=== PATIENT | female | born 1980 | race Caucasian/White ===

== ENCOUNTER 2022-04-07 12:09 | Outpatient (CLI) | payer OTHER, SELFPAY ==
[2022-04-07 12:23] VITALS: BMI 35.1
--- NOTE | 2022-04-07 12:23 | ECG_ITS ---
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 Interpretive Statements NAME OF STUDY: TREADMILL STRESS TEST INDICATION: Chest Pain PROCEDURE: At the baseline, the patient's blood pressure was 124/94 with a heart rate of 95. The baseline electrocardiogram showed normal sinus rhythm with normal ST-Ts.. The patient exercised for 9 minutes on a standard Santiago protocol. Patient attained a maximum heart rate of 165 beats per minute(91% of the maximum predicted heart rate) with a blood pressure at the peak exercise of 118/86 mm Hg. The EKG at the peak exercise revealed no significant changes. Patient did not have any chest pain or any significant cardiac arrhythmias with the exercise During the recovery phase, there were no new changes. Blood pressure at the end of the recovery phase was 129/75 mm Hg with a heart rate of 87 per minute. CONCLUSION: 1. Normal EKG response to treadmill exercise 2. No exercise-induced chest pain or cardiac arrhythmia 3. Fair exercise tolerance, attained a maximum of 10.2 METs Electronically Signed On 04-09-2022 16:38:09 [employer] OFFICER CHIEF by Ca Dubon M.D. [email or web address]
[2022-04-07 13:44] VITALS: BP 133/84; PULSE 88
== END 2022-04-07 12:10 | disposition home or self-care (01) ==
PROVIDERS: PCP Family Medicine; Visit Provider Family Medicine
DX: R07.9 Chest pain, unspecified (principal)
CPT/HCPCS: 93017

== ENCOUNTER 2022-12-15 14:52 | Outpatient (CLI) | payer OTHER, SELFPAY ==
--- NOTE | 2022-12-15 15:07 | MM_ITS ---
WS: [id number] BILATERAL 3D TOMOSYNTHESIS DIGITAL DIAGNOSTIC MAMMOGRAPHY WITH CAD CLINICAL INFORMATION: BR LUMP HISTORY: RIGHT breast palpable lump COMPARISON: 2013 TECHNIQUE: Bilateral CC, MLO, and ML views. FINDINGS: Scattered fibroglandular densities bilaterally. Dense parenchymal tissue deep to the palpable marker upper outer RIGHT breast with a few small ovoid nodules. Ultrasound of this area is pending. No suspicious findings LEFT breast. Previously described ovoid nodule LEFT breast has been resected. ULTRASOUND BREAST LEFT TECHNIQUE: Ultrasound left breast focused area of concern. CLINICAL INFORMATION: BR LUMP FINDINGS: Ultrasound RIGHT breast in the area of concern upper outer quadrant at the 10 o'clock position 5 cm f rom the nipple. Dense Parenchymal tissue in the area of concern. Ovoid hypoechoic nodule with some th rough transmission and internal echogenicity measuring 1.0 x 0.7 x 0.5 cm. This may present a complex cyst but indeterminate and recommend further evaluation with ultrasound-guided biopsy. IMPRESSION: MM/[place] [id number] BI-RADS: 4-Suspicious Finding-Biopsy Should Be Considered FOLLOW UP: US Guided Biopsy Recommended Recommend ultrasound-guided biopsy palpable RIGHT breast lesion
--- NOTE | 2022-12-15 15:21 | US_ITS ---
WS: [id number] BILATERAL 3D TOMOSYNTHESIS DIGITAL DIAGNOSTIC MAMMOGRAPHY WITH CAD CLINICAL INFORMATION: BR LUMP HISTORY: RIGHT breast palpable lump COMPARISON: 2013 TECHNIQUE: Bilateral CC, MLO, and ML views. FINDINGS: Scattered fibroglandular densities bilaterally. Dense parenchymal tissue deep to the palpable marker upper outer RIGHT breast with a few small ovoid nodules. Ultrasound of this area is pending. No suspicious findings LEFT breast. Previously described ovoid nodule LEFT breast has been resected. ULTRASOUND BREAST LEFT TECHNIQUE: Ultrasound left breast focused area of concern. CLINICAL INFORMATION: BR LUMP FINDINGS: Ultrasound RIGHT breast in the area of concern upper outer quadrant at the 10 o'clock position 5 cm f rom the nipple. Dense Parenchymal tissue in the area of concern. Ovoid hypoechoic nodule with some th rough transmission and internal echogenicity measuring 1.0 x 0.7 x 0.5 cm. This may present a complex cyst but indeterminate and recommend further evaluation with ultrasound-guided biopsy. IMPRESSION: US/US breast RT limited* [id number] BI-RADS: 4-Suspicious Finding-Biopsy Should Be Considered FOLLOW UP: US Guided Biopsy Recommended Recommend ultrasound-guided biopsy palpable RIGHT breast lesion
== END 2022-12-15 14:53 | disposition home or self-care (01) ==
PROVIDERS: PCP Family Medicine; Visit Provider Family Medicine
DX: N63.11 Unspecified lump in the right breast, upper outer quadrant (principal)
CPT/HCPCS: 76642; 77062; G0279

== ENCOUNTER 2023-01-04 13:56 | Outpatient (CLI) | payer OTHER, SELFPAY ==
--- NOTE | 2023-01-04 14:09 | US_ITS ---
WS: [id number] ULTRASOUND-GUIDED RIGHT BREAST BIOPSY HISTORY: R BREAST LUMP COMPARISON: 12/15/2022 Procedure, risks and complications are explained to the patient. Medications are reviewed. Consent is obtained. The mass in the RIGHT breast is localized with ultrasound. Mass localizes to 10:00. Skin is cleansed with ChloraPrep and anesthetized with 1% buffered lidocaine. Small dermatome is made. Under sterile c onditions mass is biopsied with a 14-gauge Achieve needle. Multiple core biopsies are performed. Mate rial placed in formalin and sent to pathology for review. No complications encountered. Breast tissue marker ([employer] ultrasound enhanced ribbon): Single. Patient left the radiology suite with no complications. Patient is instructed to return to [facility] or [facility] with any concerns. IMPRESSION: 1. Uncomplicated core needle biopsy RIGHT breast mass at 10:00. 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 RECOMMENDATION: Return to annual screening mammography.
== END 2023-01-04 13:57 | disposition home or self-care (01) ==
LOC: RAD 14:00
PROVIDERS: PCP Family Medicine; Visit Provider Family Medicine
DX: D24.1 Benign neoplasm of right breast (principal); N63.11 Unspecified lump in the right breast, upper outer quadrant
CPT/HCPCS: 19083; 88305

== ENCOUNTER 2023-11-03 13:17 | Emergency (ER) | payer OTHER, SELFPAY ==
[2023-11-03 14:02] VITALS: BP 144/93; PULSE 66; RESP 16; TEMP 37.1; O2SAT 100; BMI 25.9
--- NOTE | 2023-11-03 14:50 | XR_ITS ---
WS: [id number] KUB, AP view, 11/03/2023 Clinical Data: constipation Comparison: None. Findings: No abnormal intraabdominal masses or calcifications are seen. There is no dilatated small bowel or ev idence of obstruction. There are clips in the right upper quadrant from a cholecystectomy. There is fecal material in the as cending colon. XR/XR abdomen 1V* [id number] Impression: Negative KUB.
--- NOTE | 2023-11-03 16:33 | ED_ITS ---
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 She had pelvic pain in the left lower quadrant began last night she been very irregular bowel movements last couple weeks. She correlates it with beginning to take Wellbutrin. She did have a small bowel movement after using an enema. She not had any vomiting denies any hematuria or hematochezia or melena. No fever sweats or chills no history of kidney stones or diverticulitis. She has previously had a cholecystectomy. Associated Symptoms: Denies chills, dysuria and fever(s) Related Data Previous Rx's Medication Instructions Recorded amoxicillin 875 mg-potassium 1 tab PO BID #20 tabs 11/03/23 clavulanate 125 mg tablet Allergies Allergy/AdvReac Type Severity Reaction Status Date / Time No Known Allergies Allergy Verified 11/03/23 14:09 Review of Systems 2 Const: Denies: fever(s) or chills Card: Denies: chest pain Resp: Denies: dyspnea GI: Denies: abdominal pain : Denies: dysuria, urinary frequency or urinary urgency Musc: Denies: neck pain or back pain Skin/Breast: Denies: rash Physical Exam 2 Const: COMMON NORMALS: no acute distress GENERAL APPEARANCE: cooperative and comfortable ORIENTATION/CONSCIOUSNESS: Yes awake, Yes oriented to person, Yes oriented to place and Yes oriented to time HENMT: COMMON NORMALS: normocephalic, atraumatic and hearing grossly normal bilaterally HEAD & SCALP: normocephalic and atraumatic Resp: COMMON NORMALS: normal respiratory effort, No retractions, No use of accessory muscles and clear to auscultation bilaterally AUSCULTATION: clear to auscultation bilaterally Cardio: COMMON NORMALS: regular rate, regular rhythm and No murmurs present (Cardio) RATE: regular rate RHYTHM: regular rhythm GI: COMMON NORMALS: Soft to palpation and No hepatosplenomegaly present A USCULTATION: Yes normoactive bowel sounds PALPATION: Yes Soft to palpation, No Tenderness to palpation present (GI), No Guarding due to palpation present (GI) and Yes No hepatosplenomegaly present Extremity: COMMON NORMALS: normal to inspection, capillary refill normal, no clubbing, cyanosis or edema, no calf tenderness and no pedal edema Neuro: SENSORIUM/ORIENTATION: Yes oriented to person, Yes oriented to place and Yes oriented to time Skin: COMMON NORMALS: no rashes or lesions noted GENERAL SKIN EXAM: no rashes or lesions noted Course 2 Vital Signs: Vital signs: Vital Signs Temperature 98.7 F 11/03/23 14:02 Pulse Rate 80 11/03/23 20:14 Respiratory Rate 16 11/03/23 20:14 Blood Pressure 168/114 11/03/23 20:14 Pulse Oximetry 98 11/03/23 20:14 Oxygen Delivery Me thod Room Air 11/03/23 14:02 MDM - Abdominal Pain Medical Decision Making Care signed out to Dr. Gomez at change of shift. See final notes for diagnosis and disposition. Please see ED course for details. Lab Data 11/03/23 17:38 11/03/23 17:38 Labs/Radiology: Radiology Impressions Abdomen X-Ray 11/03/23 14:50 Impression: Negative KUB. Abdomen/Pelvis CT 11/03/23 17:46 IMPRESSION: 1. Possible ascending urinary infection, left worse than right. Consider correlation with urinalysis and laboratory findings. 2. Findings compatible with an infectious or inflammatory enteritis in the proper clinical setting. Laboratory Results WBC 10.39 10^3/uL (3.29-11.43) 11/03/23 17:38 RBC 5.32 10^6/uL (3.85-5.65) 11/03/23 17:38 Hgb 15.80 g/dL (11.27-16.99) 11/03/23 17:38 Hct 47.3 % (36-47) H 11/03/23 17:38 MCV 88.9 fl (85-98) 11/03/23 17:38 MCH 29.7 pg (27-33) 11/03/23 17:38 MCHC 33.4 g/dL (30-55) 11/03/23 17:38 RDW 12.8 % (12.1-15.1) 11/03/23 17:38 Plt Count 239 10^3/cmm (157-399) 11/03/23 17:38 MPV 10.9 fL (7.4-10.4) H 11/03/23 17:38 Neut % (Auto) 66.5 % 11/03/23 17:38 Lymph % (Auto) 25.9 % 11/03/23 17:38 [place] % (Auto) 5.4 % 11/03/23 17:38 Eos % (Auto) 1.4 % 11/03/23 17:38 Baso % (Auto) 0.5 % 11/03/23 17:38 Neut # (Auto) 6.91 10^3/uL (1.8-7.7) 11/03/23 17:38 Lymph # (Auto) 2.7 10^3/uL (0.8-4.8) 11/03/23 17:38 [place] # (Auto) 0.6 10^3/uL (0.2-0.9) 11/03/23 17:38 Eos # (Auto) 0.2 10^3/uL (0.0-0.8) 11/03/23 17:38 Baso # (Auto) 0.1 10^3/uL (0.0-0.1) 11/03/23 17:38 Nucleated RBC % (auto) 0 % 11/03/23 17:38 Nucleated RBCs # 0.0 /100WBC 11/03/23 17:38 Sodium 137 mmol/L (136-145) 11/03/23 17:38 Potassium 3.9 mmol/L (3.5-5.1) 11/03/23 17:38 Chloride 100 mmol/L (98-107) 11/03/23 17:38 Carbon Dioxide 23 mmol/L (22-29) 11/03/23 17:38 Anion Gap 17.9 (5-19) 11/03/23 17:38 BUN 9 mg/dL (6-20) 11/03/23 17:38 Creatinine 0.6 mg/dL (0.5-0.9) 11/03/23 17:38 GFR Calculation 110.7 mL/min (90-130) 11/03/23 17:38 Glucose 96 mg/dL (65-115) 11/03/23 17:38 Calculated Osmolality 283 mOsm/kg (285-295) L 11/03/23 17:38 Calcium 9.9 mg/dL (8.5-10.5) 11/03/23 17:38 Total Bilirubin 0.6 mg/dL (0.15-1.2) 11/03/23 17:38 AST 22 U/L (0-32) 11/03/23 17:38 ALT 27 U/L (0-33) 11/03/23 17:38 Alkaline Phosphatase 90 U/L (35-105) 11/03/23 17:38 Total Protein 8.4 g/dL (6.6-8.7) 11/03/23 17:38 Albumin 4.8 g/dL (3.5-5.2) 11/03/23 17:38 Globulin 3.6 g/dL (1.3-4.6) 11/03/23 17:38 Lipase 32 U/L (13-60) 11/03/23 17:38 HCG, Qual Negative (Negative) 11/03/23 17:38 Urine Color Yellow (Yellow) 11/03/23 17:42 Urine Appearance Clear (CLEAR) 11/03/23 17:42 Urine pH 8.0 (5-7) A 11/03/23 17:42 Ur Specific [place] 1.011 (1.005-1.030) 11/03/23 17:42 Urine Protein Negative (Negative) 11/03/23 17:42 Urine Glucose (UA) Negative (Normal) 11/03/23 17:42 Urine Ketones Negative (Negative) 11/03/23 17:42 Urine Blood Negative (Negative) 11/03/23 17:42 Urine Nitrate Negative (Negative) 11/03/23 17:42 Urine Bilirubin Negative (Negative) 11/03/23 17:42 Urine Urobilinogen 0.2 mg/dL (Negative) 11/03/23 17:42 Ur Leukocyte Esterase 1+ (Negative) A 11/03/23 17:42 Urine RBC 3-5 /hpf (0-2) 11/03/23 17:42 Urine WBC 21-50 /hpf (0-5) H 11/03/23 17:42 Ur Squamous Epith Cells 0-5 /hpf (0-5) 11/03/23 17:42 Amorphous Sediment Not Reportable 11/03/23 17:42 Urine Bacteria 1+ /hpf (NONE) H 11/03/23 17:42 Hyaline Casts 0-4 /lpf H 11/03/23 17:42 Discharge Plan Discharge Patient Disposition: Home Clinical Impression: Pyelonephritis Condition: Stable Prescriptions: New amoxicillin-pot clavulanate 875-125 mg tablet 1 tab PO BID Qty: 20 0RF Discharge Orders: Discharge ED (Routine); Ordered 11/03/23 Ordered By: Claudia Gomez Referrals: Doyle Ramon MD [Primary Care Provider] - Discharge Diet: Advance as tolerated Discharge Activity: Increase activity as tolerated Patient Instructions: Opioid Safety, Pain Management, Pyelonephritis Activity Restrictions/Additional Instructions: Take the antibiotics twice daily with food. Make sure you finish the course of antibiotics. Take Tylenol and/or ibuprofen as needed for pain. Push fluids. Return if you are having increased pain, persistent fever or persistent vomiting. Follow-up with your primary care provider if you are having ongoing symptoms after he finished a course of antibiotics. 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 Upon arrival to her evaluation, her white blood cell count is normal at 10.3. She also has a urinary tract infection with 21-50 white blood cells, 1+ bacteria. Urine culture has been sent. The patient's been given Augmentin 875 p.o. in the emergency department. Have also given her 1 dose of Ativan for anxiety which should help with her blood pressure. She states that she is only hypertensive with anxiety. Will plan for discharge home on Augmentin 875 twice daily x 10 days. Recommend Tylenol and ibuprofen as needed for pain. Push fluids. Do not feel that the patient has constipation. She is having regular bowel movements. She states that she just normally has diarrhea stools and they have become more firm with medication that she has been recently prescribed. There is no evidence of obstruction or other significant pathology on her CT. CT findings are consistent with pyelonephritis. Vital Signs: Vital signs: Vital Signs Temperature 98.7 F 11/03/23 14:02 Pulse Rate 80 11/03/23 20:14 Respiratory Rate 16 11/03/23 20:14 Blood Pressure 168/114 11/03/23 20:14 Pulse Oximetry 98 11/03/23 20:14 Oxygen Delivery Me thod Room Air 11/03/23 14:02 MDM - Abdominal Pain Medical Decision Making Please see ED course for details. Lab Data Blood findings are consistent with a tract infection but no other acute findings. 11/03/23 17:38 11/03/23 17:38 Labs/Radiology: Radiology Impressions Abdomen X-Ray 11/03/23 14:50 Impression: Negative KUB. Abdomen/Pelvis CT 11/03/23 17:46 IMPRESSION: 1. Possible ascending urinary infection, left worse than right. Consider correlation with urinalysis and laboratory findings. 2. Findings compatible with an infectious or inflammatory enteritis in the proper clinical setting. Laboratory Results WBC 10.39 10^3/uL (3.29-11.43) 11/03/23 17:38 RBC 5.32 10^6/uL (3.85-5.65) 11/03/23 17:38 Hgb 15.80 g/dL (11.27-16.99) 11/03/23 17:38 Hct 47.3 % (36-47) H 11/03/23 17:38 MCV 88.9 fl (85-98) 11/03/23 17:38 MCH 29.7 pg (27-33) 11/03/23 17:38 MCHC 33.4 g/dL (30-55) 11/03/23 17:38 RDW 12.8 % (12.1-15.1) 11/03/23 17:38 Plt Count 239 10^3/cmm (157-399) 11/03/23 17:38 MPV 10.9 fL (7.4-10.4) H 11/03/23 17:38 Neut % (Auto) 66.5 % 11/03/23 17:38 Lymph % (Auto) 25.9 % 11/03/23 17:38 [place] % (Auto) 5.4 % 11/03/23 17:38 Eos % (Auto) 1.4 % 11/03/23 17:38 Baso % (Auto) 0.5 % 11/03/23 17:38 Neut # (Auto) 6.91 10^3/uL (1.8-7.7) 11/03/23 17:38 Lymph # (Auto) 2.7 10^3/uL (0.8-4.8) 11/03/23 17:38 [place] # (Auto) 0.6 10^3/uL (0.2-0.9) 11/03/23 17:38 Eos # (Auto) 0.2 10^3/uL (0.0-0.8) 11/03/23 17:38 Baso # (Auto) 0.1 10^3/uL (0.0-0.1) 11/03/23 17:38 Nucleated RBC % (auto) 0 % 11/03/23 17:38 Nucleated RBCs # 0.0 /100WBC 11/03/23 17:38 Sodium 137 mmol/L (136-145) 11/03/23 17:38 Potassium 3.9 mmol/L (3.5-5.1) 11/03/23 17:38 Chloride 100 mmol/L (98-107) 11/03/23 17:38 Carbon Dioxide 23 mmol/L (22-29) 11/03/23 17:38 Anion Gap 17.9 (5-19) 11/03/23 17:38 BUN 9 mg/dL (6-20) 11/03/23 17:38 Creatinine 0.6 mg/dL (0.5-0.9) 11/03/23 17:38 GFR Calculation 110.7 mL/min (90-130) 11/03/23 17:38 Glucose 96 mg/dL (65-115) 11/03/23 17:38 Calculated Osmolality 283 mOsm/kg (285-295) L 11/03/23 17:38 Calcium 9.9 mg/dL (8.5-10.5) 11/03/23 17:38 Total Bilirubin 0.6 mg/dL (0.15-1.2) 11/03/23 17:38 AST 22 U/L (0-32) 11/03/23 17:38 ALT 27 U/L (0-33) 11/03/23 17:38 Alkaline Phosphatase 90 U/L (35-105) 11/03/23 17:38 Total Protein 8.4 g/dL (6.6-8.7) 11/03/23 17:38 Albumin 4.8 g/dL (3.5-5.2) 11/03/23 17:38 Globulin 3.6 g/dL (1.3-4.6) 11/03/23 17:38 Lipase 32 U/L (13-60) 11/03/23 17:38 HCG, Qual Negative (Negative) 11/03/23 17:38 Urine Color Yellow (Yellow) 11/03/23 17:42 Urine Appearance Clear (CLEAR) 11/03/23 17:42 Urine pH 8.0 (5-7) A 11/03/23 17:42 Ur Specific [place] 1.011 (1.005-1.030) 11/03/23 17:42 Urine Protein Negative (Negative) 11/03/23 17:42 Urine Glucose (UA) Negative (Normal) 11/03/23 17:42 Urine Ketones Negative (Negative) 11/03/23 17:42 Urine Blood Negative (Negative) 11/03/23 17:42 Urine Nitrate Negative (Negative) 11/03/23 17:42 Urine Bilirubin Negative (Negative) 11/03/23 17:42 Urine Urobilinogen 0.2 mg/dL (Negative) 11/03/23 17:42 Ur Leukocyte Esterase 1+ (Negative) A 11/03/23 17:42 Urine RBC 3-5 /hpf (0-2) 11/03/23 17:42 Urine WBC 21-50 /hpf (0-5) H 11/03/23 17:42 Ur Squamous Epith Cells 0-5 /hpf (0-5) 11/03/23 17:42 Amorphous Sediment Not Reportable 11/03/23 17:42 Urine Bacteria 1+ /hpf (NONE) H 11/03/23 17:42 Hyaline Casts 0-4 /lpf H 11/03/23 17:42 All radiology interpretation(s) finalized by discharge ED provider radiology interpretation(s): CT scan of the abdomen and pelvis shows no obstruction, no constipation. It does show changes consistent with a standing urinary tract infection but no acute findings otherwise. Discharge Plan Discharge Patient Disposition: Home Clinical Impression: Pyelonephritis Condition: Stable Prescriptions: New amoxicillin-pot clavulanate 875-125 mg tablet 1 tab PO BID Qty: 20 0RF Discharge Orders: Discharge ED (Routine); Ordered 11/03/23 Ordered By: Claudia Gomez Referrals: Doyle Ramon MD [Primary Care Provider] - Discharge Diet: Advance as tolerated Discharge Activity: Increase activity as tolerated Patient Instructions: Opioid Safety, Pain Management, Pyelonephritis Activity Restrictions/Additional Instructions: Take the antibiotics twice daily with food. Make sure you finish the course of antibiotics. Take Tylenol and/or ibuprofen as needed for pain. Push fluids. Return if you are having increased pain, persistent fever or persistent vomiting. Follow-up with your primary care provider if you are having ongoing symptoms after he finished a course of antibiotics. Coding Level of Care Code ED Scrap Carrier for Lois Gan
[2023-11-03 17:00] VITALS: PULSE 63; O2SAT 99
--- NOTE | 2023-11-03 17:46 | CTR_ITS ---
PROCEDURE INFORMATION: Exam: CT Abdomen And Pelvis With Contrast Exam date and time: 11/03/2023 6:39 PM Age: 42 years old Clinical indication: Abdominal pain; Localized; Left; Prior surgery; Surgery date: 6+ months; Surgery type: Choley; Additional info: Abd pain TECHNIQUE: Imaging protocol: Computed tomography of the abdomen and pelvis with contrast. Radiation optimization: All CT scans at this facility use at least one of these dose optimization techniques: automated exposure control; mA and/or kV adjustment per patient size (includes targeted exams where dose is matched to clinical indication); or iterative reconstruction. Contrast material: OMNI 350; Contrast volume: 100 ml; Contrast route: INTRAVENOUS (IV); COMPARISON: CR XR abdomen 1V* [id number] 11/03/2023 2:55 PM RADIATION DOSE METRICS: Total DLP (mGy-cm): 407.63 FINDINGS: Lungs: Subsegmental bibasilar atelectasis. The visualized lung bases are otherwise grossly clear. Diaphragm: No evidence of diaphragmatic defect. Liver: Hepatic steatosis. No evidence of focal hepatic lesion. Gallbladder and biliary ducts: TheStatus post cholecystectomy. No evidence of intrahepatic or extrahepatic biliary dilatation. Pancreas: Unremarkable. Spleen: Unremarkable. Adrenal glands: Unremarkable. Kidneys and ureters: No renal parenchymal abnormality. No hydronephrosis or ureteral stone. There is mild urothelial thickening and haziness of the renal pelvises and proximal ureters, [id number] raising the question of ascending urinary infection. No evidence of pyelonephritis. Stomach and bowel: No evidence of bowel obstruction or perienteric inflammatory changes. Multiple loops of thickened small bowel compatible with an infectious or inflammatory enteritis in the proper clinical setting. Appendix: Normal appendix. Intraperitoneal space: No evidence of free air or fluid collection. Vasculature: No aneurysmal dilatation or dissection of the abdominal aorta. The celiac trunk, SMA and HEENA are grossly patent. No evidence of IVC thrombus. The portal vein, SMV and splenic veins are grossly patent. Lymph nodes: No adenopathy. Urinary bladder: Grossly unremarkable. Reproductive: Grossly unremarkable. Bones/joints: No evidence of acute fracture or aggressive osseous lesion. Grade 1 anterolisthesis of L5 on S1 secondary to chronic bilateral L5 pars defects. There is moderate-severe bilateral foraminal stenosis at this level. Consider correlation with follow-up outpatient MRI to evaluate for neural impingement. Soft tissues: No evidence of fluid collection or hematoma in the superficial soft tissues. CT/CT abdomen pelvis w con* [id number] IMPRESSION: 1. Possible ascending urinary infection, left worse than right. Consider correlation with urinalysis and laboratory findings. 2. Findings compatible with an infectious or inflammatory enteritis in the proper clinical setting.
[2023-11-03 17:57] LABS: Basophils # 0.1 10^3/uL (0.0-0.1); Basophils % 0.5 %; Eosinophils # 0.2 10^3/uL (0.0-0.8); Eosinophils % 1.4 %; Hematocrit 47.3 % (36-47); Lymphocytes # 2.7 10^3/uL (0.8-4.8); Lymphocytes % 25.9 %; Mean Corpuscular HGB Conc 33.4 g/dL (30-55); Mean Corpuscular Hemoglobin 29.7 pg (27-33); Mean Corpuscular Volume 88.9 fl (85-98); Mean Platelet Volume 10.9 fL (7.4-10.4); Monocytes # 0.6 10^3/uL (0.2-0.9); Monocytes % 5.4 %; Neutrophils # 6.91 10^3/uL (1.8-7.7); Neutrophils % 66.5 %; Nucleated Red Blood Cells % 0 %; Platelet Count 239 10^3/cmm (157-399); Red Blood Count 5.32 10^6/uL (3.85-5.65); Red Cell Distribution Width 12.8 % (12.1-15.1); White Blood Count 10.39 10^3/uL (3.29-11.43)
[2023-11-03 17:59] VITALS: BP 144/106; PULSE 66; O2SAT 100
[2023-11-03 18:21] LABS: HCG, Serum Qual Negative (Negative)
[2023-11-03 18:26] LABS: Bilirubin Urine Negative (Negative); Blood Urine Negative (Negative); Glucose Urine UA Negative (Normal); Ketones Urine Negative (Negative); Leukocyte Esterase Urine 1+ (Negative); Nitrate Urine Negative (Negative); Protein Urine Negative (Negative); Specific Gravity, Urine 1.011 (1.005-1.030); Urine Appearance Clear (CLEAR); Urine Color Yellow (Yellow); Urobilinogen Urine 0.2 mg/dL (Negative)
[2023-11-03 18:28] LABS: Alanine Aminotransferase 27 U/L (0-33); Albumin Level 4.8 g/dL (3.5-5.2); Alkaline Phosphatase 90 U/L (35-105); Anion Gap 17.9 (5-19); Aspartate Amino Transferase 22 U/L (0-32); Blood Urea Nitrogen 9 mg/dL (6-20); Calcium 9.9 mg/dL (8.5-10.5); Carbon Dioxide 23 mmol/L (22-29); Chloride 100 mmol/L (98-107); Creatinine Clr Calc Pharmacy 105.3386; Globulin 3.6 g/dL (1.3-4.6); Glomerular Filtration Rate 110.7 mL/min (90-130); Glucose 96 mg/dL (65-115); Lipase 32 U/L (13-60); Osmolality Calculated 283 mOsm/kg (285-295); Potassium 3.9 mmol/L (3.5-5.1); Sodium 137 mmol/L (136-145); Total Bilirubin 0.6 mg/dL (0.15-1.2); Total Protein 8.4 g/dL (6.6-8.7)
[2023-11-03 18:30] VITALS: BP 187/114
[2023-11-03 18:31] LABS: Add Urine Microscopic? YES; Bacteria Urine 1+ /hpf; Hyaline Casts Urine 0-4 /lpf; Squamous Epithelial Cell Urine 0-5 /hpf (0-5); WBC Urine 21-50 /hpf (0-5)
[2023-11-03] MEDS: iohexol 350 mg/mL 500 mL Btl (per mL) IV (18:51)
[2023-11-03] MEDS: amoxicillin-clav 875-125 mg Tablet 1 TAB PO (19:44)
[2023-11-03] MEDS: LORazepam 2 mg/mL INJ 1 mL 1 MG IVP (19:44)
[2023-11-03 20:14] VITALS: BP 168/114; PULSE 80; RESP 16; O2SAT 98
== END 2023-11-03 20:24 | disposition home or self-care (01) ==
PROVIDERS: Physician Assistant; Emergency Provider Emergency Medicine; PCP Family Medicine
DX: N12 Tubulo-interstitial nephritis, not specified as acute or chronic (principal); R10.2 Pelvic and perineal pain
CPT/HCPCS: 36415; 74018; 74177; 80053; 81001; 83690; 84703; 85025; 96374; 99285; J2060

== ENCOUNTER 2024-01-05 15:08 | Outpatient (CLI) | payer OTHER, SELFPAY ==
--- NOTE | 2024-01-05 15:12 | MR_ITS ---
WS: [id number] MRI RIGHT HAND WITHOUT CONTRAST. COMPARISON: Radiograph 12/22/2023 Multiplanar, multisequence imaging is performed without contrast. Very subtle marrow edema involving the proximal third phalanx. There is a edema and fluid at the thir d metacarpal phalangeal joint with adjacent soft tissue edema and swelling. There is increased fluid along the volar surface of the third finger at the level of the metacarpal head. There is very slight separation of the flexor digitorum superficialis tendon from the third metacarpal head at the site o f the fluid suggesting a mild injury along the volar plate. The radial and ulnar collateral ligaments involving the third metacarpal phalangeal joint have been d isrupted. Greater disruption involving the radial collateral ligament. A more minor injury to the fou rth metacarpal phalangeal joint. Collateral ligaments appear intact as seen best on the axial T2 sequ ence. There is edema and soft tissue injury involving both the third and fourth metacarpal phalangeal joints but greatest on the third. Smaller amount of fluid adjacent to the fourth metacarpal head. MR/MR hand RT wo con* [id number] IMPRESSION: 1. Very tiny amount of marrow edema involving the proximal third phalanx. 2. Soft tissue edema and injury surrounding the third and fourth metacarpal ph alangeal joints but greater involving the third joint space. 3. Increased fluid along the volar surface of the third and to a lesser extent fourth metacarpal heads suggesting a mild injury to the volar plate. 4. Torn radial and collateral ligaments at the third metacarpal phalangeal nely nt. Greater disruption of the radial collateral ligament. Edema associated with the fourth metacarpal collateral ligaments and fluid. On the axial imaging the ligaments appear intact.
== END 2024-01-05 15:09 | disposition home or self-care (01) ==
LOC: RAD 15:09
PROVIDERS: PCP Family Medicine; Visit Provider Family Medicine
DX: S53.21XA Traumatic rupture of right radial collateral ligament, initial encounter (principal); M25.441 Effusion, right hand; X58.XXXA Exposure to other specified factors, initial encounter
CPT/HCPCS: 73218